=== PATIENT | male | born 1995 | race Caucasian/White ===

== ENCOUNTER 2017-04-12 21:18 | Emergency (ER) | payer MEDICAID ==
[2017-04-12 21:54] LABS: BASOPHIL % 0.2 % (0-2); PLATELET COUNT 249 x10^3mcL (130-400); RED CELL DISTRIBUTION WIDTH 13.1 % (11.5-14.5)
[2017-04-12 21:59] LABS: CALCIUM 9.4 mg/dL (8.5-10.1); CARBON DIOXIDE 28.6 mmol/L (21-32); CHLORIDE SERUM 103 mmol/L (98-107); CREATININE SERUM 0.8 mg/dL (0.7-1.3); GFR1 > 60 mL/min; GLUCOSE SERUM 100 mg/dL (74-106); POTASSIUM SERUM 3.8 mmol/L (3.5-5.1); SODIUM SERUM 141 mmol/L (136-145)
[2017-04-12 22:03] LABS: ALBUMIN 4.1 g/dL (3.4-5.0); ALKALINE PHOSPHATASE 128 U/L (46-116); ALT/SGPT 93 U/L (16-63); AST/SGOT 38 U/L (15-37); BILIRUBIN TOTAL 0.23 mg/dL (0.20-1.00); TOTAL PROTEIN, SERUM 7.8 g/dL (6.4-8.2)
[2017-04-12 22:24] LABS: CK-MB < 0.5 ng/mL (0-3.6); CREATINE KINASE 130 U/L (39-308)
[2017-04-12 23:53] VITALS: BP 124/76
== END 2017-04-12 23:53 | disposition home or self-care (01) ==
LOC: ED 21:18
PROVIDERS: Emergency Medicine
DX: R07.89 Other chest pain (principal); M54.5 Low back pain
CPT/HCPCS: 36415; J1885

== ENCOUNTER 2017-05-20 18:12 | Emergency (ER) | payer MEDICAID ==
[~2017-05-20] VITALS: Ht 175.3 cm; Wt 90.7 kg
[2017-05-20 20:47] VITALS: BP 120/76
== END 2017-05-20 20:47 | disposition home or self-care (01) ==
LOC: ED 18:12
DX: S09.90XA Unspecified injury of head, initial encounter (principal); R03.0 Elevated blood-pressure reading, without diagnosis of hypertension; G89.29 Other chronic pain; W17.89XA Other fall from one level to another, initial encounter; Y93.89 Activity, other specified; Y92.89 Other specified places as the place of occurrence of the external cause; Y99.8 Other external cause status

== ENCOUNTER 2017-06-18 05:58 | Emergency (ER) | payer SELFPAY ==
[~2017-06-18] VITALS: Ht 175.3 cm; Wt 92.5 kg
[2017-06-18 06:06] VITALS: BP 131/81
== END 2017-06-18 07:08 | disposition home or self-care (01) ==
LOC: ED 05:58
DX: S05.01XA Injury of conjunctiva and corneal abrasion without foreign body, right eye, initial encounter (principal); G89.29 Other chronic pain; H54.7 Unspecified visual loss; M54.9 Dorsalgia, unspecified; X58.XXXA Exposure to other specified factors, initial encounter; Y93.89 Activity, other specified; Y99.8 Other external cause status; Y92.89 Other specified places as the place of occurrence of the external cause

== ENCOUNTER 2018-01-23 22:32 | Emergency (ER) | payer SELFPAY ==
[~2018-01-23] VITALS: Ht 152.4 cm; Wt 88.9 kg
[2018-01-23 22:47] VITALS: Ht 152.4 cm; Wt 88.9 kg
[2018-01-24 01:12] VITALS: BP 123/95
== END 2018-01-24 01:12 | disposition home or self-care (01) ==
LOC: ED 22:32
DX: J40 Bronchitis, not specified as acute or chronic (principal); G89.29 Other chronic pain; F17.210 Nicotine dependence, cigarettes, uncomplicated
CPT/HCPCS: J1885; Q0092

== ENCOUNTER 2020-07-22 14:37 | Emergency (ER) | payer SELFPAY ==
[~2020-07-22] VITALS: Ht 175.3 cm; Wt 98.9 kg
[2020-07-22 14:42] VITALS: BP 122/80
== END 2020-07-22 16:19 | disposition home or self-care (01) ==
LOC: ED 14:37
DX: U07.1 COVID-19 (principal); J45.909 Unspecified asthma, uncomplicated; G89.29 Other chronic pain; M54.9 Dorsalgia, unspecified
CPT/HCPCS: U0003